=== PATIENT | female | born 1965 ===

== ENCOUNTER 2019-01-31 05:40 | Day surgery (SDC) | payer OTHER ==
[~2019-01-31 05:40] MED LIST: MIRAPEX0.25 MG PO
== END 2019-01-31 14:20 | disposition home or self-care (01) ==
LOC: CIR.AMB 05:40
DX: M65.841 Other synovitis and tenosynovitis, right hand (principal)

== ENCOUNTER 2023-10-26 06:26 | Day surgery (SDC) | payer OTHER ==
[2023-10-24 08:09] LABS: HEMOGLOBIN 13.9 g/dL (12.0-15.00); MEAN CORPUSCULAR HEMOGLOBIN 28.1 pg (27.00-32.0); PLATELET COUNT 324 K/uL (150-450); RED BLOOD COUNT 4.94 M/uL (4.00-6.00); RED CELL DISTRIBUTION WIDTH 13.1 % (11.5-14.5)
[2023-10-24 08:36] LABS: PH,URINE 7.5 (5.0-8.0); URINE APPEARANCE Clear; URINE BILIRRUBIN Negative (NEGATIVE); URINE BLOOD Negative; URINE COLOR Yellow; URINE GLUCOSE Negative (NEGATIVE); URINE KETONE Negative (NEGATIVE); URINE LEUKOCYTE Small; URINE NITRATE Negative; URINE PROTEIN Negative (NEGATIVE); URINE UROBILINOGEN 0.2 E.U./dl
[2023-10-24 08:39] LABS: URINE BACTERIA 507.5 uL (0.0-1933); URINE EPITHELIAL CELLS 30.9 uL (0.0-38.8); URINE RBC 14.5 uL (0.0-20.8); URINE WBC 13.9 uL (0.0-23.2)
[2023-10-24 08:57] LABS: INR 0.94; PARTIAL THROMBOPLASTIN TIME 28.1 SECONDS (22.0-34.0); PROTHROMBIN TIME 10.3 SECONDS (9.0-11.5)
[2023-10-24 09:09] LABS: BILIRUBIN TOTAL 0.34 mg/dL (0.3-1.2); CALCIUM 9.1 mg/dL (8.5-10.1); CREATININE SERUM 0.66 mg/dL (0.55-1.02); GFR 91.98; POTASSIUM 4.53 mEq/L (3.5-5.1)
[~2023-10-26 06:26] MED LIST changes: +COZAAR100 MG; +NORVASC5 MG; +PRAVASTATIN 20 MG
[2023-10-26] MEDS ORDERED: CEFAZOLIN SODIUM 1,000 MG VIAL ONE (09:45)
[2023-10-26] MEDS ORDERED: SUGAMMADEX SODIUM 200 MG/2 ML VIAL IV ONE ×2 (11:01→11:07)
[2023-10-26] MEDS ORDERED: MORPHINE SULFATE 4 MG/ML VIAL IV ONE ×2 (11:45→12:15)
== END 2023-10-26 14:40 | disposition home or self-care (01) ==
LOC: CIR.AMB 06:26
PROVIDERS: ATTEND Surgery
DX: K80.10 Calculus of gallbladder with chronic cholecystitis without obstruction (principal); I10 Essential (primary) hypertension